=== PATIENT | female | born 1965 | race Caucasian/White ===

== ENCOUNTER → 2020-09-05 13:55 | Outpatient (BNVA) | payer SELFPAY | PROVIDERS: Visit Provider Internal Medicine | DX: S82.422A Displaced transverse fracture of shaft of left fibula, initial encounter for closed fracture (principal); W17.2XXA Fall into hole, initial encounter | CPT/HCPCS: 73610; 99203 ==

== ENCOUNTER 2020-09-12 12:36 | Outpatient (REF) | payer OTHER, SELFPAY ==
--- NOTE | 2020-09-12 12:50 | XR_ITS ---
EXAMINATION: XR ANKLE, LEFT CLINICAL INFORMATION: Sprain of unspecified ligament. COMPARISON: Left ankle 09/05/2020 TECHNIQUE: AP, lateral, and mortise views of the left ankle. FINDINGS: There is a comminuted fracture distal fibula with no callus formation. The lateral malleolar soft tissue swelling has improved. The ankle mortise and subtalar joints are normal. There is retrocalcaneal enthesophytes as well as calcification unchanged. XR/XR ankle LT 2V IMPRESSION: Oblique comminuted distal fibular fracture with minimal displacement. Decreased lateral malleolar soft tissue swelling.
== END 2020-09-12 12:37 | disposition home or self-care (01) ==
LOC: HO.HOSX 12:36
PROVIDERS: PCP Family Medicine; Visit Provider Physician Assistant
DX: S93.409A Sprain of unspecified ligament of unspecified ankle, initial encounter (principal); S82.839A Other fracture of upper and lower end of unspecified fibula, initial encounter for closed fracture
CPT/HCPCS: 11042; 73600; 99212; 99213

== ENCOUNTER 2020-10-25 13:57 | Outpatient (REF) | payer OTHER, SELFPAY ==
--- NOTE | 2020-10-25 13:57 | XR_ITS ---
EXAMINATION: XR ANKLE, LEFT CLINICAL INFORMATION: Fracture follow-up COMPARISON: 09/05/2020 TECHNIQUE: AP, lateral, and mortise views of the left ankle. FINDINGS: There is periosteal reaction around the oblique fracture of the distal fibular metaphysis (Rodriguez B injury). Fracture lucency remains visible. Bones have normal alignment at the ankle. The talar dome is well-positioned within the mortise. Ankle joint space and syndesmotic space are maintained. Soft tissues remain swollen at the lateral ankle. XR/XR ankle LT min 3V IMPRESSION: There is early healing reaction at the periphery of the Rodriguez B fibular fracture. Alignment is anatomic.
== END 2020-10-25 13:58 | disposition home or self-care (01) ==
LOC: HO.HOSX 13:57
PROVIDERS: Visit Provider Physician Assistant
DX: S82.839A Other fracture of upper and lower end of unspecified fibula, initial encounter for closed fracture (principal)
CPT/HCPCS: 73610; 99212

== ENCOUNTER 2020-11-29 16:00 | Outpatient (RCR) | payer OTHER, BC, SELFPAY ==
--- NOTE | 2020-10-30 17:22 | MHC.PT.EP ---
[facility] [place] [facility] [place] Office [place] Office [address] She Macias [address] [phone] F: [phone] F: [phone] F: [phone] F: [phone] Physical Therapy Plan of Care Date of Evaluation: 10/30/20 Date of Surgery: Diagnosis: This is a 55 yo female presenting to skilled PT with a script for L fx upper and lower end of fibula Assessment: This is a 55 yo female presenting to skilled PT with a script for L fx upper and lower end of fibula. Patient comes in today reporting fibula fx when she stepped into a hole at work on September 04. She was being followed by ortho (in walking boot for 7wks, no surgical intervention). The last ortho note reports that she has been ambulating without the boot and has no concerns. At this time their plan is to transition to a lace-up ASO brace (currently using all day) and begin PT for ROM and proprioceptive training. Per ortho she can resume activities as tolerated and follow up with them as needed. Functionally, she is limited with squatting and walking down the stairs. She also reports some general instability. She has never injured this ankle before. Her symptoms are described is achy in the gastroc and anterior ankle joint. Currently she reports that the exercise she has been doing is walking on her treadmill at lunch 1.5 mph for about 20 mins. This does not cause an increase of pain but her norm is walking at about 4.0 mph prior to injury. Assessment reveals no more than 2/10 pain at the worst. She does have some decreased muscle ROM and joint ROM at the ankle on the L, decreased balance and stability, impaired gait pattern on normal surface and when descending stairs, swelling throughout ankle and decreased functional tolerance with squatting and quick turns. She is a great candidate for skilled PT 2x/wk for 5wks in order to regain strength, ROM and stability as well as return to normal routine and gait without pain. Frequency and Duration: The patient will be seen 2x/wk for 5wks Short Term Goals: I in HEP Demo at least 5 deg improvement in L ankle AROM DF and PF mainly Demo good squat techniques without pain or cuing SLS for 30 sec on the L Intermediate Goals: Normal ROM and strength without pain Demos normal gait without pain with return to normal descending pattern on stairs without pain or instability noted Return to normal ADL and work in full Improve LEFs by 5 points Treatment Plan: Modalities to reduce pain, spasms and effusion. Manual therapy to restore motion and function. Therapeutic exercise to improve strength and flexibility. Neuromuscular re-education for posture and balance. Therapeutic activities to return to functional activities of daily living. Electronically signed by: Vesta Acevedo PT Please sign and return to therapist. Thank you for your referral.
--- NOTE | 2020-11-29 17:42 | MHC.PT.DC ---
[facility] [place] Office [place] Office [place] Office [address] She Macias [address] [phone] F: [phone] F: [phone] F: [phone] F: [phone] Physical Therapy Discharge Report Diagnosis: This is a 55 yo female presenting to skilled PT with a script for L fx upper and lower end of fibula Date of Surgery: Date of Evaluation: 10/30/20 Date of Discharge: Treatments to Date: 10 Cancellations to Date: 0 No Shows to Date: 0 Discharge Status: Discharge Summary: Patient demos good tolerance for exercises and improved tolerance for descending stairs (no problems noted in clinic). She demos normal ROM and improved strength in general. No LOB or instability noted. DC to HEP at this time as she is I and compliant. Soft tissue and pain has improved, understands self massage at home. Educated on using brace on return to work for stability and safety. DC to HEP. Electronically signed by: Vesta Acevedo PT Please sign and return to therapist. Thank you for your referral.
--- NOTE | 2020-11-29 17:44 | MHC.PT.DC ---
[facility] [place] [facility] [place] Office [place] Office [address] She Macias [address] [phone] F: [phone] F: [phone] F: [phone] F: [phone] Physical Therapy Discharge Report Diagnosis: This is a 55 yo female presenting to skilled PT with a script for L fx upper and lower end of fibula Date of Surgery: Date of Evaluation: 10/30/20 Date of Discharge: 11/29/20 Treatments to Date: 10 Cancellations to Date: 0 No Shows to Date: 0 Discharge Status: Achieved Goals Improved Function Independent with HEP Discharge Summary: Patient demos good tolerance for exercises and improved tolerance for descending stairs (no problems noted in clinic). She demos normal ROM and improved strength in general. No LOB or instability noted. DC to HEP at this time as she is I and compliant. Soft tissue and pain has improved, understands self massage at home. Educated on using brace on return to work for stability and safety. DC to HEP. Electronically signed by: Vesta Acevedo PT Please sign and return to therapist. Thank you for your referral.
== END 2020-11-29 17:45 | disposition home or self-care (01) ==
LOC: HO.PTCHIC 16:00
PROVIDERS: PCP Family Medicine; Visit Provider Physician Assistant
DX: S82.832D Other fracture of upper and lower end of left fibula, subsequent encounter for closed fracture with routine healing (principal)
CPT/HCPCS: 97110; 97112; 97140; 97161